=== PATIENT | female | born 2000 | race Caucasian/White ===

== ENCOUNTER 2020-06-25 11:17 | Emergency (ER) | payer OTHER ==
[2020-06-25 12:47] LABS: HEMOGLOBIN 13.6 gm/dl (12.3-15.3); RED BLOOD COUNT 4.5 M/UL (4.00-5.10); WHITE BLOOD COUNT 10.1 K/UL (4.5-11.0)
[2020-06-25 13:05] LABS: BUN/CREATININE RATIO 16 (0-10)
[2020-06-25] MEDS ORDERED: CEPHALEXIN500 M1 PO (14:40)
== END 2020-06-25 14:49 | disposition home or self-care (01) ==
LOC: ER1 11:17
PROVIDERS: Physician Assistant
DX: O99.891 Other specified diseases and conditions complicating pregnancy (principal); R82.81 Pyuria; O99.511 Diseases of the respiratory system complicating pregnancy, first trimester; J45.909 Unspecified asthma, uncomplicated; O99.331 Smoking (tobacco) complicating pregnancy, first trimester; F17.200 Nicotine dependence, unspecified, uncomplicated; Z90.89 Acquired absence of other organs
CPT/HCPCS: 80048; 81001; 84702; 85025; 86900; 86901; 87086; 99283

== ENCOUNTER 2020-07-17 18:08 | Emergency (ER) | payer OTHER ==
[~2020-07-17 18:08] MED LIST: CEPHALEXIN500 M1 PO
[2020-07-18 01:32] LABS: HEMOGLOBIN 12.5 gm/dl (12.3-15.3); RED BLOOD COUNT 4.23 M/UL (4.00-5.10); WHITE BLOOD COUNT 8.9 K/UL (4.5-11.0)
[2020-07-18 02:02] LABS: BUN/CREATININE RATIO 11 (0-10)
[2020-07-18] MEDS ORDERED: CEFUROXIME500 MG PO (03:14)
== END 2020-07-18 03:26 | disposition home or self-care (01) ==
LOC: ER1 18:08
PROVIDERS: Physician Assistant
DX: O23.41 Unspecified infection of urinary tract in pregnancy, first trimester (principal); O99.511 Diseases of the respiratory system complicating pregnancy, first trimester; J45.909 Unspecified asthma, uncomplicated; O99.331 Smoking (tobacco) complicating pregnancy, first trimester; F17.210 Nicotine dependence, cigarettes, uncomplicated; Z79.899 Other long term (current) drug therapy; Z3A.01 Less than 8 weeks gestation of pregnancy
CPT/HCPCS: 76817; 80053; 81001; 83690; 84702; 85025; 99284

== ENCOUNTER 2020-09-02 04:40 | Emergency (ER) | payer OTHER ==
[~2020-09-02 04:40] MED LIST changes: +CEFUROXIME500 MG PO
[2020-09-02 06:39] LABS: HEMOGLOBIN 11.5 gm/dl (12.3-15.3); RED BLOOD COUNT 3.92 M/UL (4.00-5.10); WHITE BLOOD COUNT 11.2 K/UL (4.5-11.0)
[2020-09-02 07:08] LABS: BUN/CREATININE RATIO 19 (0-10)
== END 2020-09-02 10:37 | disposition home or self-care (01) ==
LOC: ER1 04:40
PROVIDERS: Family Medicine
DX: O99.891 Other specified diseases and conditions complicating pregnancy (principal); R00.2 Palpitations; O99.511 Diseases of the respiratory system complicating pregnancy, first trimester; J45.909 Unspecified asthma, uncomplicated; O99.331 Smoking (tobacco) complicating pregnancy, first trimester; F17.200 Nicotine dependence, unspecified, uncomplicated; Z3A.11 11 weeks gestation of pregnancy
CPT/HCPCS: 80053; 82550; 82553; 83874; 84484; 85025; 85379; 93005; 93242; 99285